=== PATIENT | female | born 2000 | race Caucasian/White ===

== ENCOUNTER → 2020-07-05 11:46 | Outpatient (BNVA) | payer BC, MEDICAID, SELFPAY | PROVIDERS: Family Provider Nurse Practitioner Family; PCP Nurse Practitioner Family; Visit Provider Nurse Practitioner | DX: F41.9 Anxiety disorder, unspecified (principal); F32.9 Major depressive disorder, single episode, unspecified | CPT/HCPCS: 87491; 87591 ==

== ENCOUNTER → 2021-09-06 14:30 | Outpatient (BNVA) | payer BC, MEDICAID, SELFPAY | PROVIDERS: Family Provider Nurse Practitioner Family; PCP Nurse Practitioner Family; Visit Provider Nurse Practitioner Family | DX: R53.83 Other fatigue (principal); R55 Syncope and collapse | CPT/HCPCS: 80053; 82746; 83540; 84443; 84702; 85025 ==

== ENCOUNTER → 2022-07-29 12:02 | Outpatient (BNVA) | payer BC, MEDICAID, SELFPAY | PROVIDERS: Family Provider Nurse Practitioner Family; PCP Nurse Practitioner Family; Visit Provider Nurse Practitioner Family | DX: F41.9 Anxiety disorder, unspecified (principal); R07.9 Chest pain, unspecified | CPT/HCPCS: 80053; 84443; 85025 ==